=== PATIENT | male | born 1965 | race Caucasian/White ===

== ENCOUNTER → 2017-03-16 | Outpatient (CLI) | payer BC ==
[~2017-03-16] MED LIST: ALLEGRA ALLERG180 MG PO; ALLOPURINOL300 M1 PO; AMBIEN5 MG PO; AMMONIUM LACTATE121 TP; AVINZA60 MG PO; BACLOFEN 10MG T10 MG PO; FLONASE 50 MCG16 GM; HYDROCHLOROTH12.5 M1 PO; HYDROCODONE1 TABLET PO; LEXAPRO 20 MG T20 MG PO; LIPITOR80 MG PO; METFORMIN HYD1000 MG PO; MOBIC15 MG PO; MORPHINE SULFAT30 M4 PO; MORPHINE SULFAT60 MG PO; MYRBETRIQ50 MG PO; Morphine Sulfat30 M1 PO; OLEPTRO150 MG PO; POTASSIUM CHLO10 ME3 PO; SENEXON-S1 TAB PO; TAMSULOSIN HYD0.4 MG PO; VALACYCLOVIR1 GM PO; VITAMIN B-121000 MCG PO; VITAMIN D1000 IU PO; ZYRTEC10 M2 PO; Zofran4 MG PO
== END ==
LOC: RT 10:33
DX: Z12.11 Encounter for screening for malignant neoplasm of colon (principal)

== ENCOUNTER → 2017-03-17 | Outpatient (CLI) | payer BC | LOC: RT 11:48 | DX: Z01.818 Encounter for other preprocedural examination (principal) ==

== ENCOUNTER 2017-05-11 13:15 | Day surgery (SDC) | payer BC ==
[~2017-05-11] VITALS: Ht 175.3 cm; Wt 97.5 kg
[~2017-05-11 13:15] MED LIST changes: +ATORVASTATIN 8080 MG PO
[2017-05-11 13:25] VITALS: BP 103/63
[2017-05-11 13:41] VITALS: BP 103/63
[2017-05-11 13:43] VITALS: BP 113/65
[2017-05-11 13:45] VITALS: BP 118/61
--- NOTE | 2017-05-11 13:58 | Procedure Note ---
Procedure detail Date of procedure: 05/11/17 Anesthesiologist: Denis Alvarado Complications: None Pre-procedure diagnosis: Degenerative disease of her spine multiple levels. Lumbar spondylosis. Post-procedure diagnosis: Same. Indications for procedure: Very pleasant 52-year-old white male were treating in our pain clinic for chronic low back pain secondary to degenerative disease lumbar spine multiple levels lumbar radiculopathy symptoms. Lumbar spondylosis. Multilevel lumbar facet arthropathy. Patient status post 2 rounds medial branch block L3-4, L4-5, L5-S1. Patient reports today 90 percent improvement terms of his lumbar back pain lasting 3-6 days. After which time his pain returns. Essentially, in its entirety. I discussed in detail with the patient regarding rhizotomy lumbar spine L3-4, L4-5, L5-S1 bilaterally. Patient presents today for lumbar radiofrequency ablation on the LEFT at L3-4, L4-5, L5-S1. Procedure detail: The procedure was explained to the patient in detail. Consent form was signed. Patient was taken back to the procedure room, where noninvasive monitors were placed. This included noninvasive blood pressure cuff and pulse oximeter. The patient was placed prone on the C-arm table. The area over the lumbar spine was cleansed using chlorhexidine as cleansing solution. Using fluoroscopy guidance, markers were placed over the pedicle at the LEFT [ L4, L5] as well as over the [ sacral ala]. 1% Lidocaine was used to anesthetize the skin with a 25-gauge needle at these markers. Using fluoroscopy guidance the radiofrequency probe was used to access the superior margin of the pedicle at [ L4, L5 and the sacral ala ]. After negative motor stimulation, 2 mls of 0.25% Marcaine and 10 mg of Depo- Medrol were injected into each needle. We then proceeded with radial frequency ablation at all 3 levels at 80 degrees Celsius 60 seconds. After the lesion was formed the needles were withdrawn. Band-Aids were applied. The patient tolerated the procedure without difficulty. There were no complications Plan and disposition: Patient was reevaluated tenderness post procedure. He is doing very well. Returned since the pain clinic further evaluation. at [id number]
== END 2017-05-11 14:00 | disposition home or self-care (01) ==
LOC: PM 13:15
PROC: 3E0T3TZ Introduction of Destructive Agent into Peripheral Nerves and Plexi, Percutaneous Approach (ICD-10-PCS; principal; 2017-05-11)
PROC: BR161ZZ Fluoroscopy of Lumbar Facet Joint(s) using Low Osmolar Contrast (ICD-10-PCS; 2017-05-11)
DX: M54.06 Panniculitis affecting regions of neck and back, lumbar region (principal); M51.16 Intervertebral disc disorders with radiculopathy, lumbar region
CPT/HCPCS: J1030

== ENCOUNTER → 2017-08-02 | Outpatient (CLI) | payer BC ==
[2017-08-02 14:53] LABS: AMPHETAMINES/METAMPHETAMINES NEGATIVE ng/mL (<1000)
[2017-08-06 03:37] LABS: Codeine Negative (Cutoff=100); Hydrocodone Negative (Cutoff=100); Hydromorphone Positive (.); Morphine Positive (.); Opiates Positive (.)
== END ==
LOC: LAB 11:35
PROVIDERS: Nurse Anesthetist, Certified Registered
DX: Z79.899 Other long term (current) drug therapy (principal)

== ENCOUNTER → 2017-10-07 | Day surgery (SDC) | payer BC ==
[~2017-10-07] VITALS: Ht 175.3 cm; Wt 99.8 kg
[~2017-10-07] MED LIST changes: +OXYBUTYNIN5 MG PO
--- NOTE | 2017-10-07 10:50 | Operative Note ---
Surgeon/Diagnoses Surgeon/Paper Novelty Maker(s) Date of procedure: 10/07/17 Surgeon: MD Edd Tinsley Diagnoses Pre-op diagnosis: Screening colonoscopy Sigmoid diverticulosis Melanosis coli Post-op diagnosis Same Procedure Procedure Procedure: Colonoscopy Indications: CESAR SMITH is a 52 year-old Male with a history of colonoscopy earlier this year was complicated by poor bowel preparation. An isolated sigmoid diverticulum, patchy colitis, and melanosis coli were confirmed. He returns for short-term repeat colonoscopy. Findings: Bowel preparation moderate to poor with large volume irrigation and suctioning used to somewhat improved visualization (somewhat improved versus prior evaluation) No polypoid or mass lesions noted. Procedure Description: After informed consent was obtained, the patient was taken to the endoscopy suite. Monitored anesthesia care ensued after he was transferred to the LEFT lateral decubitus position. Digital rectal exam revealed no significant abnormality. Colonoscope was placed in position. The entire colon was evaluated. Bowel preparation was moderate to poor with large volume irrigation and suctioning used to somewhat improved visualization. Melanosis coli once again noted. No polypoid or mass lesions were seen. The colonoscope was carefully removed and the patient was transferred recovery. EBL (ml): 0 Anesthesia: Monitored anesthesia care Complications: No immediate Specimens: None Disposition Disposition: Stable to recovery from where he will be transferred to radiology for barium enema. Barium enema will be ordered secondary to continued limited visualization on repeat colonoscopy. If barium enema reveals no significant abnormality repeat colonoscopy would be around 2-3 years. at 1050
[2017-10-07 11:45] VITALS: BP 97/59
--- NOTE | 2017-10-08 09:15 | RADIOLOGY REPORT PS360 ---
BARIUM ENEMA HISTORY: Tortuous: During colonoscopy with limited visualization. LIMITED VISUALIZATION COLONOSCOPY ORDERING PHYSICIAN: ANGÉLICA TINSLEY MD PATIENT AGE: 52 years COMPARISON: None FINDINGS: Manager Assembly exam shows an epidural stimulator device with the power pack overlying the left ilium. The colon was visualized from rectum to cecum. No annular constricting lesions or fixed polypoid filling defects are evident. No diverticula. No mucosal abnormalities. Contrast did not reflux into the terminal ileum and appendix did not fill. IMPRESSION: Negative air contrast barium minimal
== END ==
LOC: SDC 09:25
PROVIDERS: Surgery
PROC: 0DJD8ZZ Inspection of Lower Intestinal Tract, Via Natural or Artificial Opening Endoscopic (ICD-10-PCS; principal; 2017-10-07 10:00)
DX: K57.30 Diverticulosis of large intestine without perforation or abscess without bleeding (principal); K63.89 Other specified diseases of intestine; K52.9 Noninfective gastroenteritis and colitis, unspecified